=== PATIENT | male | born 1960 | race Two or more races ===

== ENCOUNTER 2018-06-30 09:18 | Outpatient (CLI) | payer OTHER ==
[~2018-06-30 09:18] MED LIST: PROTONIX40 MG PO; REGLAN5 MG/5 ML PO; ZANTAC300 MG PO
== END 2018-06-30 10:31 | disposition home or self-care (01) ==
LOC: RAD 501 09:18
DX: M25.512 Pain in left shoulder (principal); M54.2 Cervicalgia

== ENCOUNTER 2018-08-11 10:45 | Outpatient (CLI) | payer OTHER | END 2018-08-11 10:50 | disposition home or self-care (01) | LOC: RAD 501 10:45 | DX: J44.1 Chronic obstructive pulmonary disease with (acute) exacerbation (principal) ==

== ENCOUNTER 2019-02-09 08:14 | Outpatient (CLI) | payer OTHER | END 2019-02-09 09:00 | disposition home or self-care (01) | LOC: NUCLEAR 08:14 | DX: M05.9 Rheumatoid arthritis with rheumatoid factor, unspecified (principal); M13.0 Polyarthritis, unspecified | CPT/HCPCS: 78306; 78320; A9503 ==